=== PATIENT | male | born 1990 | race African-American/Black ===

== ENCOUNTER 2019-08-11 21:55 | Emergency (ER) | payer SELFPAY ==
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
--- NOTE | 2019-08-11 22:15 | PC.NURSE ---
security at bedside per Dr. Izquierdo.
[2019-08-11 22:16] VITALS: BP 127/78; PULSE 98; RESP 20; TEMP 37.7; O2SAT 98
--- NOTE | 2019-08-11 22:23 | PC.NURSE ---
Patient reported to MD that he had homicidal thoughts toward his two children, stated he would use a pokemon card to suffocate one child, and that he would allow his other child who is an to choke and stop breathing, and would then shoot himself in the head. Patient also reported to MD that he has access to guns. Patient changed into paper scrubs, sitter and security at bedside.
[2019-08-11 22:46] LABS: Basophils Percent Auto 0.7 % (0.2-1.2); Eosinophils Percent Auto 0.3 % (0-4.4); Hematocrit 39.9 % (42.0-52.0); Hemoglobin 13.4 g/dL (14.0-18.0); Immature Granulocyte Absolute 0.01 K/mm3 (0.00-0.031); Immature Granulocyte Percent A 0.2 % (0-0.5); Lymphocytes Absolute Auto 2.86 K/mm3 (0.9-3.2); Lymphocytes Percent Auto 48.7 % (18.3-44.2); Mean Corpuscular HGB Conc 33.6 g/dl (32-36); Mean Corpuscular Hemoglobin 31.1 pg (26-34); Mean Corpuscular Volume 92.6 fl (80-100); Mean Platelet Volume 9.6 fl (7.4-10.4); Monocytes Absolute Auto 0.3 K/mm3 (0.1-0.6); Monocytes Percent Auto 4.6 % (2.6-8.5); Neutrophils Absolute Auto 2.7 K/mm3 (1.3-6.7); Neutrophils Percent Auto 45.5 % (45.5-73.1); Platelet Count Result 234 k/mm3 (150-375); Red Blood Count 4.31 M/mm3 (4.6-6.20); Red Cell Distribution Width 13.4 % (11.5-14.5); White Blood Count 5.9 K/mm3 (4.5-10.0)
--- NOTE | 2019-08-11 22:49 | PC.NURSE ---
Patient refused to completely undress and remove all of his clothing. This nurse, the hand mounter, and another RN went into room and spoke with patient that he needs to get completely undressed and in the green scrubs. Patient continued to refuse. ED security at the bedside as well. Patient attempting to negotiate. Patient assisted in getting completely undressed by ED security and 2 male RNs. Patient did cooperate when undressing.
--- NOTE | 2019-08-11 22:53 | PC.NURSE ---
Patient refused to take off shorts, boxers, and bandana. Patient given multiple opportunities to remove clothes himself and continued to refuse. Pt assisted to remove clothes by security and RNs.
[2019-08-11 23:00] LABS: Alanine Aminotransferase 38 U/L (4-50); Albumin Level 4.7 g/dL (3.5-5.1); Alkaline Phosphatase 73 U/L (38-126); Aspartate Amino Transferase 64 U/L (17-59); Bilirubin,Total 0.2 mg/dL (0.2-1.3); Blood Urea Nitrogen 11 mg/dL (9-20); Calcium 8.8 mg/dL (8.4-10.2); Carbon Dioxide 26 mmol/L (22-30); Chloride 108 mmol/L (98-107); Estimated CRCL calculation 134 ml/min; Estimated Glomerular Filt Rate > 60; Glucose 93 mg/dL (75-110); Potassium 3.9 mmol/L (3.4-5.0); Sodium 144 mmol/L (137-145)
[2019-08-11 23:28] LABS: Ethanol 334 mg/dL (<10)
[2019-08-11 23:32] LABS: Add Urine Microscopic? YES; Appearance Urine Clear (Clear); Bacteria Urine Trace /hpf; Bilirubin Urine Negative (Negative); Blood Urine 1+ (Negative); Color Urine Yellow (Yellow); Glucose Urine UA Negative (Negative); Ketones Urine Negative (Negative); Leukocyte Esterase Ur Negative LEU/UL (Negative); Mucus Urine Rare /lpf; Nitrate Urine Negative (Negative); Protein Urine Negative (Negative); RBC Urine 0-2 /hpf (0-2); Specific Grav Ur 1.025 (1.001-1.035); Urobilinogen Urine Negative mg/dL (<2.0); WBC Urine 0-3 /hpf
[2019-08-11 23:46] LABS: Amphetamine Screen Urine Negative (Negative); Barbiturate Screen Urine Negative (Negative); Benzodiazepines Screen Urine Negative (Negative); Cannabinoid Screen Urine Negative (Negative); Cocaine Screen Urine Negative (Negative); Methadone Screen Urine Negative (Negative); Opiate Screen Urine Negative (Negative); Phencyclidine Screen Urine Negative (Negative)
[2019-08-12 04:04] VITALS: BP 104/57; PULSE 91; RESP 16; TEMP 37.3; O2SAT 100
--- NOTE | 2019-08-12 06:23 | PC.NURSE ---
This nurse contacts DCFS and speaks with pbx operator #4. Unle[employer]ened D[employer]er #4 states all the phones are busy at this time and she will take a message. Unle[employer]ened D[employer]er #4 collects patient's birthday and name and a return call number. Unle[employer]er #4 states they will be in touch regarding the case. manager of supply chain informed.
--- NOTE | 2019-08-12 06:53 | PC.NURSE ---
The [employer] form for DCF[employer] was filled out and mailed off in regards to patient's statements he made to the EDP.
--- NOTE | 2019-08-12 07:26 | PC.NURSE ---
Assumed care. Sleeping. Sitter at bedside.
[2019-08-12 09:17] VITALS: BP 115/80; PULSE 89; RESP 20; TEMP 37.4; O2SAT 100
--- NOTE | 2019-08-12 09:20 | PC.NURSE ---
When asking pt if he is still having suicidal or homicidal thoughts pt states we all have those . pt states he doesn't have a gun anyway if he wanted to shoot himself. pt is being vague and will not answer yes or no to SI or HI.
[2019-08-12 11:41] LABS: Ethanol 153 mg/dL (<10)
--- NOTE | 2019-08-12 13:02 | PC.NURSE ---
Pt father called to speak with pt. Father is not on pts chart as someone to talk too. Went and asked pt if I could speak with his father or at least tell him that pt is here. Pt stated that I could inform father that pt was here but that is all. I informed father of this. Pts father states he will be coming up here
[2019-08-12 14:50] LABS: Ethanol 84 mg/dL (<10)
--- NOTE | 2019-08-12 15:15 | PC.NURSE ---
Called [facility] in regards to pt. Spoke with Marcela and she states she will have someone come out for pts.
[2019-08-12 15:27] VITALS: BP 142/91; PULSE 110; RESP 18; TEMP 37.2; O2SAT 100
--- NOTE | 2019-08-12 17:32 | PC.NURSE ---
Per deli worker pt is being involuntary admitted. deli worker faxed information to other facilities. Will wait to hear from them
--- NOTE | 2019-08-12 19:22 | PC.NURSE ---
Rosana from [facility] called to check on placement of pt. Informed Rosana that have not heard from either place. Rosana states she is going to call and see what is going on.
--- NOTE | 2019-08-12 19:41 | PC.NURSE ---
Rosana from [facility] called and stated that [facility] is full but we can still fax paperwork to them. [facility] said to fax paperwork to ATTN: Pina. 2027- bilingual secretary tried to fax paperwork to [facility] but the number that was given stated that no on would answer. 2047- This RN called Rosana from [facility] and informed her of this. Rosana gave a new number to [facility] [phone]. Rosana also stated that another facility called [facility] stated we could fax information to them as well. [phone]. bilingual secretary will fax. 2054 - bilingual secretary faxed paperwork over to [facility]
--- NOTE | 2019-08-12 22:37 | PC.NURSE ---
Rosana from [facility] called to check on status of bed placement. Informed Rosana that the second number given to us for [facility] was not a good number as well. Rosana stated that she thinks something is wrong on their end of the fax machine. Rosana also stated a place called [facility] in [place], [place] could possibly have a bed available. If they do have a bed they will fax information for this hospital to fill out. Rosana stated that she will pass this all on to day crew and let them follow up with pt. Will inform charge nurse
[2019-08-12 23:33] VITALS: BP 129/78; PULSE 70; RESP 16; O2SAT 100
--- NOTE | 2019-08-13 07:09 | PC.NURSE ---
Assumed care of pt, pt resting at this time, equal chest rise and fall, lights dimmed. Sitter at bedside.
[2019-08-13 07:34] VITALS: BP 130/83; PULSE 78; RESP 18; O2SAT 100
--- NOTE | 2019-08-13 07:34 | PC.NURSE ---
Pt alert to questions, has uneaten tray at bedside. This RN offered fresh breakfast tray, pt declines and states Im just not hungry. Leave the tray and I will eat it later. This RN questioned pt on how he is feeling at this time. Pt states I'm feeling fine, I just want to be discharged. Pt denies SI/HI at this time, pt denies Psych treatment in [facility].
--- NOTE | 2019-08-13 10:32 | PC.NURSE ---
This RN called [facility] and spoke to Amanda for update status on bed placement for pt. This RN was told they are swamped and not able to look for placement at this time due to workers on outreaches , per Amanda will be contacting ER soon for cont search for pt placement. Was advised will call and work on this case as soon as able. functional director aware.
--- NOTE | 2019-08-13 11:27 | PC.NURSE ---
Report from [facility] Calderon. Advised that crisis would be here shortly to work on placement for pt.
[2019-08-13 11:32] VITALS: BP 128/82; PULSE 68; RESP 18; TEMP 37.2; O2SAT 100
--- NOTE | 2019-08-13 13:05 | PC.NURSE ---
2634 CONTACTED [facility] @[phone] SPOKE WITH NATALIE,STATED THEY ARE CONTINUING TO LOOK FOR PLACEMENT AND IF THEY DO NOT HAVE PLACEMENT WILL COME OUT AND REEVALUATE .
--- NOTE | 2019-08-13 15:27 | PC.NURSE ---
rec'd call from [facility], they did not receive the fax with pt information, faxed again. Spoke with Q and was told they have beds but needed information to review
[2019-08-13 15:47] VITALS: BP 126/78; PULSE 62; RESP 16; TEMP 37.2; O2SAT 99
--- NOTE | 2019-08-13 15:50 | PC.NURSE ---
called [facility] to find out why 2nd fax could not go through and was given another fax number by Q to try- [phone]. Crisis steam turbine assembler Amanda at bedside to renew the petition and certificate.
--- NOTE | 2019-08-13 16:22 | PC.NURSE ---
Amanda evaluated pt and is going to renew the petition and [facility] in [facility] called for nurse to nurse report on pt and is going to present pt to staff there and call back.
--- NOTE | 2019-08-13 16:52 | PC.NURSE ---
[facility] called back and denied patient acceptance due to involuntary commitment status and that pt was self pay.
--- NOTE | 2019-08-13 16:53 | PC.NURSE ---
new petition faxed to [facility], Leo from [facility] called and said they needed labs results from today. advised Leo that labs were not drawn today due to not being a part of medical necessity and that the patient was medically cleared by the doctor already. Leo also requested the petition to have information specific to their facility. Fax did not go through at this time, will try again
--- NOTE | 2019-08-13 17:15 | PC.NURSE ---
Dr Ramos aware of request from [facility], order for CBC and CMP placed. awaiting results
--- NOTE | 2019-08-13 18:10 | PC.NURSE ---
Results of CBC and CMP returned normal.
[2019-08-13 18:12] LABS: Basophils Percent Auto 0.7 % (0.2-1.2); Eosinophils Percent Auto 0.7 % (0-4.4); Hematocrit 41.2 % (42.0-52.0); Hemoglobin 13.6 g/dL (14.0-18.0); Immature Granulocyte Absolute 0.01 K/mm3 (0.00-0.031); Immature Granulocyte Percent A 0.2 % (0-0.5); Lymphocytes Absolute Auto 1.89 K/mm3 (0.9-3.2); Mean Corpuscular Hemoglobin 30.9 pg (26-34); Mean Corpuscular Volume 93.6 fl (80-100); Mean Platelet Volume 9.5 fl (7.4-10.4); Monocytes Absolute Auto 0.5 K/mm3 (0.1-0.6); Monocytes Percent Auto 12.7 % (2.6-8.5); Neutrophils Absolute Auto 1.6 K/mm3 (1.3-6.7); Neutrophils Percent Auto 39.7 % (45.5-73.1); Platelet Count Result 210 k/mm3 (150-375); Red Cell Distribution Width 13.1 % (11.5-14.5); White Blood Count 4.1 K/mm3 (4.5-10.0)
[2019-08-13 18:23] LABS: Alanine Aminotransferase 33 U/L (4-50); Albumin Level 4.7 g/dL (3.5-5.1); Alkaline Phosphatase 78 U/L (38-126); Aspartate Amino Transferase 53 U/L (17-59); Blood Urea Nitrogen 13 mg/dL (9-20); Calcium 9.7 mg/dL (8.4-10.2); Carbon Dioxide 30 mmol/L (22-30); Chloride 99 mmol/L (98-107); Estimated CRCL calculation 103 ml/min; Estimated Glomerular Filt Rate > 60; Glucose 88 mg/dL (75-110); Potassium 4.2 mmol/L (3.4-5.0); Sodium 138 mmol/L (137-145)
--- NOTE | 2019-08-13 19:10 | PC.NURSE ---
faxed results of labs to [facility]
--- NOTE | 2019-08-13 19:41 | PC.NURSE ---
Leo at [facility] called again stating they got the results of labs that were faxed but needed another face sheet and petition sent to them. 1945- info faxed to [facility]
[2019-08-13 19:44] VITALS: BP 128/82; PULSE 66; RESP 16; TEMP 37.1; O2SAT 99
--- NOTE | 2019-08-13 20:28 | PC.NURSE ---
Leo from [facility] called and asked for pts SSN, and stated he would contact the dr to see if pt would be accepted.
--- NOTE | 2019-08-13 20:50 | PC.NURSE ---
[facility] called and accepted pt, Dr. Lopez, rm [id number], for nurse to nurse report
--- NOTE | 2019-08-13 20:52 | PC.NURSE ---
Report called to [facility], no requests from nurse there. [facility] called for transport, ETA [id number]. RN at [facility] notified of EMS ETA
--- NOTE | 2019-08-13 20:56 | PC.NURSE ---
Addendum entered by Coral Medellin 08/13/19 21:46: 2059: Called [facility] to transport...arrived at 2145. Cancelled [facility] at 2145. Original Note: Called [facility] to transport to [place]...ETA [id number]. #[id number]
--- NOTE | 2019-08-13 22:06 | PC.NURSE ---
Adriano, from [facility] calls get information on patient's statements and patients' case. Adriano provided an intake number of #[id number]. Adriano stated he would also like to speak to the nurse currently taking care of the patient. After this nurse was done speaking with Adriano, I transferred to call to NEGRA Galicia whom she was taking care of the patient currently.
== END 2019-08-13 21:45 | disposition short-term general hospital (02) ==
PROVIDERS: Emergency Medicine; Emergency Provider Emergency Medicine; PCP Internal Medicine
DX: R45.851 Suicidal ideations (principal); R45.850 Homicidal ideations; J45.909 Unspecified asthma, uncomplicated
CPT/HCPCS: 36415; 80053; 80307; 81001; 84443; 85025; 87804; 99285; J1630; J2060